=== PATIENT | female | born 1950 | race Caucasian/White ===

== ENCOUNTER 2023-09-19 11:06 | Emergency (ER) | payer OTHER ==
[~2023-09-19] VITALS: Ht 154.9 cm; Wt 68.9 kg
[2023-09-19] MEDS ORDERED: LEVOTHYROXINE25 MCG PO (11:15)
[2023-09-19] MEDS ORDERED: ZESTRIL10 M1 PO (11:15)
[2023-09-19] MEDS ORDERED: TOPROL XL25 M1 PO (11:15)
== END 2023-09-19 14:16 | disposition home or self-care (01) ==
LOC: ER 11:06
DX: S60.221A Contusion of right hand, initial encounter (principal); V48.1XXA Car passenger injured in noncollision transport accident in nontraffic accident, initial encounter; Y93.89 Activity, other specified; Y92.488 Other paved roadways as the place of occurrence of the external cause; Z88.6 Allergy status to analgesic agent